=== PATIENT | male | born 1945 | race Caucasian/White ===

== ENCOUNTER 2017-04-20 12:50 | Outpatient (CLI) | payer MEDICARE ==
--- OUTSIDE RECORDS SUMMARY | 2017-04-20 12:52 | XMS | Clinical Summary ---
:1945 Author Organization [facility] Address [address] [place] [address] Phone Care Team Providers Name Role Phone Kike Nam Primary Care Provider tel Allergies No Known Allergies Current Medications Prescription Sig. Disp. Refills Start Date End Date Status aspirin (ECOTRIN) 81 MG Take 81 mg by Active enteric coated tablet mouth. pantoprazole (PROTONIX) 03/24/2016 Active 40 MG EC tablet dronedarone (MULTAQ) 400 Take 400 mg by 02/16/2017 Active mg tablet mouth. furosemide (LASIX) 40 mg Take 40 mg by Active tablet mouth. potassium chloride 03/24/2016 Active (K-DUR) 20 MEQ CR tablet finasteride (PROSCAR) 5 Take 5 mg by mouth 5 03/08/2017 Active mg tablet once daily. olmesartan (BENICAR) 40 Take 40 mg by mouth 5 01/13/2017 Active MG tablet once daily. atorvastatin (LIPITOR) 10 Take 10 mg by 11/12/2015 Active MG tablet mouth. zolpidem (AMBIEN) 5 MG Take 5 mg by mouth 0 01/18/2017 Active tablet nightly as needed. for sleep metFORMIN (GLUCOPHAGE) Take 500 mg by Active 500 mg tablet mouth 2 (two) times a day with meals. amLODIPine (NORVASC) 2.5 Take 2.5 mg by Active mg tablet mouth daily. Active Problems Problem Noted Date Acute pain of left shoulder 04/12/2017 History of repair of left rotator cuff 04/12/2017 Encounters Date Type Specialty Care Team Description 04/12/2017 Office Visit Orthopedic Surgery Tyler Prieto Acute pain of left MD Александр shoulder (Primary Dx);History of repair of left rotator cuff from Last 3 Months Family History Relation Name Status Comments Father Mother Social History Tobacco Use Types Packs/Day Years Used Date Never Smoker Smokeless Tobacco: Never Used Alcohol Use Drinks/Week oz/Week Comments No Sex Assigned at Date Recorded Not on file Last Filed Vital Signs Vital Sign Reading Time Taken Blood Pressure - - Pulse - - Temperature - - Respiratory Rate - - Oxygen Saturation - - Inhaled Oxygen Concentration - - Weight 99.8 kg (220 lb) 04/12/2017 10:50 AM CDT Height 167.6 cm (5' 6") 04/12/2017 10:50 AM CDT Body Mass Index 35.51 04/12/2017 10:50 AM CDT Plan of Treatment Health Maintenance Due Date Last Done Comments COLONOSCOPY 1995 ZOSTER VACCINE 2005 PNEUMOCOCCAL POLYSACCHARIDE VACCINE AGE 65 AND OVER 2010 PNEUMOCOCCAL-13 2010 INFLUENZA VACCINE 02/23/2017 Procedures Procedure Name Priority Date/Time Associated Comments Diagnosis NM ARTHROCENTESIS Routine 04/12/2017 11:10 Acute pain of left Results for this ASPIR&/INJ MAJOR AM CDT shoulder procedure are in JT/BURSA W/O US theresults section. from Last 3 Months Results Large Joint Arthrocentesis (04/12/2017 11:10 AM) Narrative Tyler Prieto MD 04/12/2017 11:10 AM Large Joint Arthrocentesis Consent given by: patient Site marked: site marked Supporting Documentation Indications: pain and diagnostic evaluation Procedure Details Preparation: Patient was prepped and draped in the usual sterile fashion Location: shoulder - L subacromial bursa Left side: Needle size: 22 G Approach: anterior Left shoulder medications administered: 1 mL triamcinolone acetonide 40 mg/mL Patient tolerance: patient tolerated the procedure well with no immediate complications XR Shoulder 2+ Vw Left (04/12/2017 10:33 AM) Specimen Performing Laboratory [facility] [address] [place] [address] Narrative Indications: Left shoulder pain X-rays: Left shoulder 3 views show previous rotator cuff repair with [address] Mild glenohumeral arthritis. No significant high riding humeral head. Impression: Mild glenohumeral arthritis Previous rotator cuff repair noted from Last 3 Months Insurance Payer Benefit Plan / Group Subscriber ID Type Phone Address [employer] MED[employer]ARE HU[employer]NA MEDICARE PPO/PFFS/ERS [facility] [id number] PPO [phone] [place] [phone]
--- NOTE | 2017-04-20 15:12 | NM ---
VQ SCAN: Date: 04/20/17 HISTORY: Other secondary pulmonary hypertension. TECHNIQUE: A ventilation perfusion scan was performed using 9 mCi Xenon-133 by inhalation for the ventilation s tudy followed by the intravenous administration of 6.6 mCi technetium-99m MAA for the perfusion scan . FINDINGS: Correlation is made with the chest radiograph of the same date. Homogeneous tracer distribution is seen in the lung thao bilaterally on ventilation perfusion scan s without mismatched, pleural based, wedge-shaped, segmental or subsegmental perfusion defects. Ther e is mild tracer retention on the washout phase on the ventilation scan. IMPRESSION: Very low probability for pulmonary embolism. POS: [facility]
--- NOTE | 2017-04-20 15:43 | RAD ---
CHEST TWO VIEWS: 04/20/17 HISTORY: Pulmonary hypertension. COMPARISON: 10/18/16 FINDINGS: The cardiac silhouette is upper limits of normal in size. Pulmonary vasculature is unremarkable. Med iastinum is midline with aortic calcification and a dual lead left subclavian cardiac electronic dev ice. There is no confluent air space consolidation, pneumothorax or pleural fluid evident. IMPRESSION: Chronic type findings are stable. No active cardiopulmonary abnormalities are demonstrated. POS: [facility]
== END 2017-04-20 12:51 | disposition home or self-care (01) ==
LOC: NM 12:50
PROVIDERS: ATTEND Internal Medicine Cardiovascular Disease
DX: I27.2 Other secondary pulmonary hypertension (principal)
CPT/HCPCS: 71020; 78582; A9540; A9558

== ENCOUNTER 2017-05-15 20:30 | Outpatient (CLI) | payer MEDICARE ==
--- OUTSIDE RECORDS SUMMARY | 2017-05-19 17:24 | XMS | Clinical Summary ---
:1945 Author Organization [facility] Address [address] [place] [address] Phone Care Team Providers Name Role Phone [...] Procedure Name Priority Date/Time Associated Comments Diagnosis AR ARTHROCENTESIS Routine 04/12/2017 11:10 Acute pain of [...] Left (04/12/2017 10:33 AM) Specimen Performing Laboratory [facility] [address] [place] [address] Narrative Indications: Left shoulder pain X-rays: Left shoulder 3 views show previous rotator cuff repair with [address] Mild glenohumeral arthritis. No significant high riding humeral head. Impression: Mild glenohumeral arthritis Previous rotator cuff repair noted from Last 3 Months Insurance Payer Benefit Plan / Group Subscriber ID Type Phone Address [employer] MEDICARE HU[employer]NA MEDICARE PPO/PFFS/ERS [facility] [id number] PPO [phone] [place] [phone]
== END 2017-05-15 20:31 | disposition home or self-care (01) ==
LOC: SLEEPLAB 20:30
PROVIDERS: ATTEND Internal Medicine Cardiovascular Disease
DX: G47.33 Obstructive sleep apnea (adult) (pediatric) (principal); E66.9 Obesity, unspecified; I10 Essential (primary) hypertension
CPT/HCPCS: 95810

== ENCOUNTER 2017-06-22 20:30 | Outpatient (CLI) | payer MEDICARE | END 2017-06-22 20:31 | disposition home or self-care (01) | LOC: SLEEPLAB 20:30 | PROVIDERS: ATTEND Internal Medicine Cardiovascular Disease | DX: G47.33 Obstructive sleep apnea (adult) (pediatric) (principal); R53.83 Other fatigue; E66.9 Obesity, unspecified; I10 Essential (primary) hypertension | CPT/HCPCS: 95811 ==

== ENCOUNTER 2021-09-03 19:00 | Outpatient (CLI) | payer MEDICARE | END 2021-09-03 19:01 | disposition home or self-care (01) | LOC: SLEEPLAB 19:00 | PROVIDERS: ATTEND Student in an Organized Health Care Education/Training Program | DX: G47.33 Obstructive sleep apnea (adult) (pediatric) (principal); R53.83 Other fatigue; G31.84 Mild cognitive impairment of uncertain or unknown etiology; R06.83 Snoring; I49.9 Cardiac arrhythmia, unspecified; Z68.34 Body mass index [BMI] 34.0-34.9, adult | CPT/HCPCS: 95811 ==

== ENCOUNTER 2022-01-01 09:53 | Outpatient (CLI) | payer MEDICARE ==
[2022-01-01 12:31] LABS: Hemoglobin 13.6 g/dL (13.5-17.5); Mean Corpuscular HGB CONC 32.2 g/dL (32.0-36.0); Mean Corpuscular Hemoglobin 28.1 pg (27.0-33.0); Mean Corpuscular Volume 87.2 fl (81.2-95.1); Mean Platelet Volume 10.3 fl (7.4-10.4); Platelet Count 243 10x3/uL (150-450); RBC Distribution Width 14.7 % (11.5-14.5); Red Blood Cell (RBC) Count 4.84 10x6/uL (4.32-5.72); White Blood Cell (WBC) Count 9.6 10x3/uL (3.5-10.5)
[2022-01-01 12:48] LABS: Anion Gap 18 mmol/L (10-20); BUN (Urea Nitrogen) 27 mg/dL (8.4-25.7); Calc. Creatinine Clearance 0 mL/min (70-130); Calcium 9.5 mg/dL (7.8-10.44); Carbon Dioxide 25 mmol/L (23-31); Chloride 101 mmol/L (98-107); Glucose 137 mg/dL (83-110); Potassium 4.5 mmol/L (3.5-5.1); Sodium 139 mmol/L (136-145)
== END 2022-01-01 09:54 | disposition home or self-care (01) ==
LOC: LABBT 09:53
PROVIDERS: ATTEND Student in an Organized Health Care Education/Training Program
DX: Z01.818 Encounter for other preprocedural examination (principal); J34.2 Deviated nasal septum; J34.89 Other specified disorders of nose and nasal sinuses; J34.3 Hypertrophy of nasal turbinates; J00 Acute nasopharyngitis [common cold]; G47.30 Sleep apnea, unspecified; Z99.89 Dependence on other enabling machines and devices; R06.5 Mouth breathing; R09.81 Nasal congestion; R09.82 Postnasal drip; Z20.822 Contact with and (suspected) exposure to COVID-19
CPT/HCPCS: 80048; 85027; 93005; U0003; U0005; 93010

== ENCOUNTER 2022-01-06 06:21 | Day surgery (SDC) | payer MEDICARE ==
[2022-01-02 13:33] VITALS: BMI 34.2
[2022-01-06] MEDS ORDERED: Oxymetazoline HCl 0.05% (30 ML BOT) ONE ×2 (07:04→08:58)
[2022-01-06] MEDS ORDERED: fentaNYL Citrate/PF 100 MCG/2 ML SYRINGE ONE (08:55)
[2022-01-06] MEDS ORDERED: Bacitracin Zinc Ointment 30 gm TUBE ONE (08:58)
[2022-01-06] MEDS ORDERED: Lidocaine 1% w/Epinephrine 1:100K 20 ML VIAL ONE (08:58)
[2022-01-06] MEDS ORDERED: SUGAMMADEX SODIUM 200 MG/2 ML VIAL ONE (09:09)
[2022-01-06] MEDS ORDERED: PROPOFOL 200 MG/20 ML VIAL ONE (09:13)
[2022-01-06] MEDS ORDERED: Dexamethasone 20 MG/5 ML VIAL ONE (09:13)
[2022-01-06] MEDS ORDERED: ePHEDrine 50 MG/ML VIAL ONE (09:13)
[2022-01-06] MEDS ORDERED: Ondansetron PF 4 MG/2 ML Vial ONE (09:13)
[2022-01-06] MEDS ORDERED: Lidocaine 1% PF 5 ML VIAL ONE (09:13)
[2022-01-06] MEDS ORDERED: Rocuronium Bromide 10 MG/ML (10ML VIAL) ONE (09:13)
[2022-01-06] MEDS ORDERED: PHENYLEPHRINE-NS 100 MCG/ML 10 ML SYRINGE ONE (09:13)
[2022-01-06] MEDS ORDERED: Fentanyl 100 MCG/2 ML VIAL ONE ×2 (11:20→11:41)
== END 2022-01-06 13:50 | disposition home or self-care (01) ==
LOC: SDC 06:21
PROVIDERS: ATTEND Student in an Organized Health Care Education/Training Program
PROC: 09SM0ZZ Reposition Nasal Septum, Open Approach (ICD-10-PCS; principal; 2022-01-06)
PROC: 09TL0ZZ Resection of Nasal Turbinate, Open Approach (ICD-10-PCS; 2022-01-06)
PROC: 09QK0ZZ Repair Nasal Mucosa and Soft Tissue, Open Approach (ICD-10-PCS; 2022-01-06)
DX: J34.89 Other specified disorders of nose and nasal sinuses (principal); J34.2 Deviated nasal septum; J34.3 Hypertrophy of nasal turbinates; G47.30 Sleep apnea, unspecified; I48.91 Unspecified atrial fibrillation; I10 Essential (primary) hypertension; E11.9 Type 2 diabetes mellitus without complications; N40.0 Benign prostatic hyperplasia without lower urinary tract symptoms; M19.90 Unspecified osteoarthritis, unspecified site; Z87.891 Personal history of nicotine dependence; Z79.82 Long term (current) use of aspirin; Z79.84 Long term (current) use of oral hypoglycemic drugs; Z79.899 Other long term (current) drug therapy; Z95.0 Presence of cardiac pacemaker
CPT/HCPCS: 30140; 30468; 30520; C1889; J1100; J2405; J2704; J3010; J3490

== ENCOUNTER 2022-04-16 19:30 | Outpatient (CLI) | payer MEDICARE | END 2022-04-16 19:31 | disposition home or self-care (01) | LOC: SLEEPLAB 19:30 | PROVIDERS: ATTEND Student in an Organized Health Care Education/Training Program | DX: R51.9 Headache, unspecified (principal); G47.33 Obstructive sleep apnea (adult) (pediatric); R53.83 Other fatigue; G47.10 Hypersomnia, unspecified; E66.9 Obesity, unspecified; Z68.34 Body mass index [BMI] 34.0-34.9, adult | CPT/HCPCS: 95811 ==